=== PATIENT | male | born 1980 | race African-American/Black ===

== ENCOUNTER 2017-06-14 14:42 | Emergency (ER) | payer SELFPAY ==
[2017-06-14 14:59] VITALS: BP 132/84
[2017-06-14 15:26] LABS: Bilirubin,Urine NEG (Negative); Blood,Urine NEG (Negative); Color,Urine Yellow (Yellow); Mucus,Urine FEW /HPF; Nitrite,Urine NEG (Negative); Urobilinogen,Urine < 2.0 mg/dL (<2.0)
--- NOTE | 2017-06-14 16:06 | Emergency Department Report ---
ED General Adult HPI - General Chief complaint: Urogenital-Male Stated complaint: PROSTATE Time Seen by Provider: 06/14/17 15:55 Source: patient Mode of arrival: Ambulatory Limitations: No Limitations - History of Present Illness Initial comments: Patient is 37 years old male with no significant positive medical history presented to the ER with chief complaint of increased urinary frequency and constipation for the last several months. Patient denied any fever nausea or vomiting. Denied any weight loss or anorexia. - Related Data Allergies Allergy/AdvReac Type Severity Reaction Status Date / Time Penicillins Allergy Rash Verified 06/14/17 14:55 ED Review of Systems ROS: Stated complaint: PROSTATE Other details as noted in HPI Comment: All other systems reviewed and negative Respiratory: denies: cough, orthopnea, shortness of breath, SOB with exertion Gastrointestinal: constipation. denies: abdominal pain, nausea, vomiting, diarrhea, hematemesis, melena, hematochezia Genitourinary: urgency, dysuria, frequency. denies: hematuria, discharge, testicular pain, testicular mass ED Past Medical Hx - Past Medical History Previous Medical History?: Yes Additional medical history: dysuria - Surgical History Past Surgical History?: No - Social History Smoking Status: Never Smoker Substance Use Type: Non Opiate Pain ED Physical Exam - General Limitations: No Limitations General appearance: alert, in no apparent distress - Head Head exam: Present: atraumatic, normocephalic - Eye Eye exam: Present: normal appearance, PERRL - ENT ENT exam: Present: normal exam, normal orophraynx, mucous membranes moist - Neck Neck exam: Present: normal inspection, full ROM. Absent: tenderness, meningismus, lymphadenopathy - Respiratory Respiratory exam: Present: normal lung sounds bilaterally. Absent: respiratory distress, wheezes, rales, rhonchi, chest wall tenderness, accessory muscle use, decreased breath sounds, prolonged expiratory - Cardiovascular Cardiovascular Exam: Present: regular rate, normal rhythm, normal heart sounds - GI/Abdominal GI/Abdominal exam: Present: soft, normal bowel sounds. Absent: distended, tenderness, guarding, rebound, rigid, organomegaly, mass, bruit - Rectal Rectal exam: Present: deferred - exam: Absent: urethral discharge External exam: Present: normal external exam - Extremities Exam Extremities exam: Present: normal inspection, full ROM, normal capillary refill - Back Exam Back exam: Present: normal inspection, full ROM. Absent: tenderness, CVA tenderness (R), CVA tenderness (L) - Neurological Exam Neurological exam: Present: alert, oriented X3, CN II-XII intact. Absent: normal gait - Skin Skin exam: Present: warm, intact, normal color ED Course Vital Signs 06/14/17 14:55 Temperature 97.8 F Pulse Rate 93 H Respiratory 20 Rate Blood Pressure 132/84 O2 Sat by Pulse 98 Oximetry Critical care attestation.: If time is entered above; I have spent that time in minutes in the direct care of this critically ill patient, excluding procedure time. ED Disposition Clinical Impression: Prostatitis, acute, Constipation Disposition: DC-01 TO HOME OR SELFCARE Is pt being admited?: No Condition: Stable Instructions: Prostatitis (ED), Constipation (ED), High Fiber Diet (ED) Referrals: PRIMARY CARE, [Primary Care Provider] - 3-5 Days
== END 2017-06-14 16:33 | disposition home or self-care (01) ==
LOC: ED 14:42
DX: N41.9 Inflammatory disease of prostate, unspecified (principal); K59.00 Constipation, unspecified; Z88.0 Allergy status to penicillin
CPT/HCPCS: 81001; 99283

== ENCOUNTER 2017-08-11 08:58 | Emergency (ER) | payer OTHER ==
[2017-08-11 09:18] VITALS: BP 129/83
--- NOTE | 2017-08-11 12:33 | Emergency Department Report ---
HPI - General Chief Complaint: Medical Clearance Time Seen by Provider: 08/11/17 11:36 - HPI HPI: This is a 37-year-old male who presents to the ED for continued urinary frequency. Patient was seen here on June 14 for prostatitis. Patient states he was prescribed some antibiotic and medications which he took until completed. Patient states that he does feel better but still gets a little bit of pressure with urination. Patient states he needs more medication. Patient was not able to follow-up as he did not give any referral. His only complaint today is feeling some pressure when he urinates Patient denies fevers/chills/nausea, vomiting, abdominal pain chest pain, shortness of breath, hematuria, penile discharge, swelling or lesions ED Past Medical Hx - Past Medical History Additional medical history: dysuria - Social History Smoking Status: Never Smoker Substance Use Type: None - Medications Home Medications: Home Medications Medication Instructions Recorded Confirmed Last Taken Type Docusate Sodium [Colace] 100 mg PO BID PRN #60 capsule 06/14/17 Unknown Rx Ciprofloxacin HCl [Ciprofloxacin 500 mg PO Q12H #20 tab 08/11/17 Unknown Rx TAB] Tamsulosin [Flomax] 0.4 mg PO QDAY #30 cap 08/11/17 Unknown Rx ED Review of Systems ROS: Stated complaint: MED REFILL? Other details as noted in HPI Constitutional: denies: chills, fever Eyes: denies: eye pain, eye discharge, vision change ENT: denies: ear pain, throat pain Respiratory: denies: cough, shortness of breath, wheezing Cardiovascular: denies: chest pain, palpitations Endocrine: no symptoms reported Gastrointestinal: denies: abdominal pain, nausea, diarrhea Genitourinary: denies: urgency, dysuria Musculoskeletal: denies: back pain, joint swelling, arthralgia Skin: denies: rash, lesions Neurological: denies: headache, weakness, paresthesias Psychiatric: denies: anxiety, depression Hematological/Lymphatic: denies: easy bleeding, easy bruising Physical Exam - Physical Exam Vital Signs: Vital Signs 08/11/17 09:14 Temperature 98.8 F Pulse Rate 69 Respiratory 18 Rate Blood Pressure 129/83 O2 Sat by Pulse 98 Oximetry Physical Exam: GENERAL: Alert and oriented x3, no apparent distress, Normal Gait, atraumatic. HEAD: Head is normocephalic and a-traumatic. EYES: Extra ocular muscles are intact. Pupils are equal, round, and reactive to light and accommodation. LUNGS: Symetrical with respiration, No wheezing, no rales or crackles, CTAB. HEART: S1, S2 present, regular rate and rhythm without murmur, no rubs, no gallops. Non tender to palpation ABDOMEN: No organomegaly was noted,Positive bowel sounds, soft, and non- distended. . Nontender to palpation on all Quadrants, NO CVA tenderness. BACK: Full range of motion, no spinal tenderness, nontender to palpation. UROGENITAL: No scrotal mass, Scrotum non tender to palpation bilaterally, no hernia, no scars or penile discharge. PSYCHIATRIC: Mood is congruent with affect, denies suicidal or homicidal ideations. SKIN: Warm and dry, No lesions, No ulceration or induration present. ED Course Vital Signs 08/11/17 09:14 Temperature 98.8 F Pulse Rate 69 Respiratory 18 Rate Blood Pressure 129/83 O2 Sat by Pulse 98 Oximetry ED Medical Decision Making - Medical Decision Making 37-year-old male presents with urinary tract infection ED course: Urinalysis positive for bacteria I discussed with the patient and also sent him home on antibiotics. I discussed with the patient have given him a referral for urology to make sure he follows up. Patient states understanding my instructions. Vital signs are stable patient is in no acute or respiratory distress. Discussed with patient if worsened symptoms to return to ED. Critical care attestation.: If time is entered above; I have spent that time in minutes in the direct care of this critically ill patient, excluding procedure time. ED Disposition Clinical Impression: Urinary frequency, Prostatitis, chronic UTI (urinary tract infection) Qualifiers: Urinary tract infection type: acute cystitis Hematuria presence: without hematuria Qualified Code(s): N30.00 - Acute cystitis without hematuria Disposition: TO HOME OR SELFCARE Is pt being admited?: No Does the pt Need Aspirin: No Condition: Stable Instructions: Prostatitis (ED), Benign Prostatic Hypertrophy (ED), Urinary Tract Infection in Men (ED) Additional Instructions: Make sure to follow up with the primary care physician as discussed. It is very important that she follow-up with the urologist for further testing. Prostate Take all your medications as you've been prescribed. If you have any worsening symptoms or develop new symptoms please return to ED immediately. Prescriptions: Ciprofloxacin HCl [Ciprofloxacin TAB] 500 mg PO Q12H #20 tab Tamsulosin [Flomax] 0.4 mg PO QDAY #30 cap Referrals: SANTA REICH MD [Primary Care Provider] - 3-5 Days [facility] [Outside] - 3-5 Days [facility] [Outside] - 3-5 Days [facility] [Outside] - 3-5 Days CARISSA MIRZA MD [Staff Physician] - 3-5 Days RYAN ROSEN MD [Referring] - 3-5 Days Forms: Work/School Release Form(ED) Time of Disposition: 12:47 Print Language: AUSTRIAN
[2017-08-11 13:44] LABS: Bacteria,Urine 1+ /HPF (Negative); Bilirubin,Urine NEG (Negative); Blood,Urine NEG (Negative); Color,Urine Yellow (Yellow); Mucus,Urine FEW /HPF; Protein,Urine <15 mg/dL mg/dL (Negative); Urobilinogen,Urine < 2.0 mg/dL (<2.0); WBC,Urine < 1.0 /HPF (0.0-6.0)
== END 2017-08-11 13:18 | disposition home or self-care (01) ==
LOC: ED 08:58
DX: N30.00 Acute cystitis without hematuria (principal); N41.9 Inflammatory disease of prostate, unspecified
CPT/HCPCS: 81001; 99283